=== PATIENT | male | born 1945 | race Caucasian/White ===

== ENCOUNTER → 2016-11-08 | Outpatient (CLI) | payer MEDICARE, MEDICAID ==
[~2016-11-08] MED LIST: FLEXERIL10 MG PO; MOTRIN800 MG PO; NOMEDS *; PHENERGAN W/CO473 ML PO
--- NOTE | 2016-11-08 11:15 | CARDIOVASCULAR REPORT ---
"Cerebrovascular Exam Indications: 784.3 Aphasia. IMPRESSIONS 1. The bilateral vertebral arteries are patent with normal antegrade flow. 2. Study suggests less than 20% stenosis involving the right internal carotid artery and the left internal carotid artery. No change from the study of 12-Feb-2016. History: Risk factors: Current tobacco use. Carotid duplex study. Complete study and Doppler flow study including spectral analysis, color and plaza scale imaging. Height: Height: 170.2cm. Height: 67in. Weight: Weight: 68kg. Weight: 149.7lb. Body mass index: BMI: 23.5kg/m^2. Body surface area: BSA: 1.8m^2. Location: Vascular laboratory. Patient status: Outpatient. Tables: Arterial flow: + +--------+--------+ |Location |V sys |V ed | + +--------+--------+ |Right CCA - proximal|84.9cm/s|14.1cm/s| + +--------+--------+ |Right CCA - distal |78.6cm/s|14.9cm/s| + +--------+--------+ |Right ECA |69.9cm/s|--------| + +--------+--------+ |Right ICA - proximal|39.2cm/s|10.5cm/s| + +--------+--------+ |Right ICA - mid |51.3cm/s|15.4cm/s| + +--------+--------+ |Right ICA - distal |63.4cm/s|24.3cm/s| + +--------+--------+ |Right vertebral |50.7cm/s|--------| + +--------+--------+ |Left CCA - proximal |80cm/s |13.2cm/s| + +--------+--------+ |Left CCA - distal |65.1cm/s|14.3cm/s| + +--------+--------+ |Left ECA |64.5cm/s|--------| + +--------+--------+ |Left ICA - proximal |64cm/s |18.7cm/s| + +--------+--------+ |Left ICA - mid |72.8cm/s|25.9cm/s| + +--------+--------+ |Left ICA - distal |76.6cm/s|29.8cm/s| + +--------+--------+ |Left vertebral |59.6cm/s|--------| + +--------+--------+ Velocity ratios: + + + + + + | |Right, V sys|Right, V ed|Left, V sys|Left, V ed| + + + + + + |Max ICA/dist CCA|0.81 |1.63 |1.18 |2.08 | + + + + + + (Report amended ) Electronically signed by: Erwin Hidalgo [id number]"
== END ==
LOC: RT 10:46
DX: R47.01 Aphasia (principal)

== ENCOUNTER → 2017-07-23 | Outpatient (CLI) | payer MEDICARE, MEDICAID | LOC: RAD 12:54 | DX: G93.40 Encephalopathy, unspecified (principal); F10.97 Alcohol use, unspecified with alcohol-induced persisting dementia ==